=== PATIENT | female | born 1945 | race Hispanic/Latino ===

== ENCOUNTER 2021-12-18 11:47 | Outpatient (CLI) | payer MEDICARE, MEDICAID, SELFPAY ==
[2021-12-18 12:16] LABS: Basophils Percent Auto 0.3 % (0.2-1.2); Eosinophils Percent Auto 0.4 % (0-4.4); Hematocrit 41.1 % (37.0-47.0); Hemoglobin 12.9 g/dL (12.0-15.0); Immature Granulocyte Absolute 0.08 K/mm3 (0.00-0.031); Immature Granulocyte Percent A 0.8 % (0-0.5); Immature Reticulocyte Fraction 13.8 % (3.0-15.9); Lymphocytes Absolute Auto 1.15 K/mm3 (0.9-3.2); Lymphocytes Percent Auto 12.1 % (18.3-44.2); Mean Corpuscular HGB Conc 31.4 g/dl (32-36); Mean Corpuscular Hemoglobin 32.6 pg (26-34); Mean Corpuscular Volume 103.8 fl (80-100); Mean Platelet Volume 9.2 fl (7.4-10.4); Monocytes Absolute Auto 0.7 K/mm3 (0.1-0.6); Neutrophils Absolute Auto 7.6 K/mm3 (1.3-6.7); Neutrophils Percent Auto 79.4 % (45.5-73.1); Platelet Count Result 202 k/mm3 (150-375); Red Blood Count 3.96 M/mm3 (4.2-5.4); Red Cell Distribution Width 13.2 % (11.5-14.5); Reticulocyte Hemoglobin Conten 34.9 pg (28.2-35.7); Reticulocyte Percent 3.14 % (0.7-4.3); Reticulocytes Absolute 0.12 B/L (32.2-175.7); White Blood Count 9.5 K/mm3 (4.5-10.0)
[2021-12-18 15:05] LABS: Iron 62 ug/dL (37-170)
[2021-12-18 15:08] LABS: Alanine Aminotransferase 22 U/L (4-35); Albumin Level 4.3 g/dL (3.5-5.1); Alkaline Phosphatase 54 U/L (38-126); Anion Gap 5 mmol/L (8-16); Aspartate Amino Transferase 23 U/L (14-36); Bilirubin,Total 0.9 mg/dL (0.2-1.3); Blood Urea Nitrogen 17 mg/dL (7-17); Calcium 8.5 mg/dL (8.4-10.2); Carbon Dioxide 31 mmol/L (22-30); Chloride 101 mmol/L (98-107); Estimated Glomerular Filt Rate > 60; Glucose 113 mg/dL (65-110); Potassium 3.9 mmol/L (3.4-5.0); Sodium 137 mmol/L (137-145)
[2021-12-18 15:15] LABS: Percent Iron Saturation 17 % (20-50)
[2021-12-18 15:37] LABS: Thyroid Stimulating Hormone 0.067 uIU/mL (0.465-4.680)
== END 2021-12-18 11:48 | disposition home or self-care (01) ==
LOC: ANHLAB 11:53
PROVIDERS: Visit Provider Internal Medicine Hematology & Oncology
DX: D64.9 Anemia, unspecified (principal)
CPT/HCPCS: 36415; 80053; 82607; 82728; 82746; 83540; 83550; 84443; 85025; 85046

== ENCOUNTER 2022-03-23 10:12 | Outpatient (CLI) | payer MEDICARE, MEDICAID, SELFPAY ==
[2022-03-23 11:10] LABS: Appearance Urine Clear (Clear); Bilirubin Urine Negative (Negative); Color Urine Yellow (Yellow); Glucose Urine UA Negative (Negative); Ketones Urine Negative (Negative); Leukocyte Esterase Ur Trace LEU/UL (NEGATIVE); Nitrate Urine Negative (Negative); Protein Urine 1+ mg/dL (Negative); Specific Grav Ur 1.015 (1.001-1.035)
[2022-03-23 11:11] LABS: Basophils Absolute Auto 0.1 K/mm3 (0.0-0.1); Basophils Percent Auto 0.6 % (0.2-1.2); Eosinophils Percent Auto 0.5 % (0-4.4); Hemoglobin 13.7 g/dL (12.0-15.0); Immature Granulocyte Absolute 0.07 K/mm3 (0.00-0.031); Immature Granulocyte Percent A 0.8 % (0-0.5); Lymphocytes Absolute Auto 2.34 K/mm3 (0.9-3.2); Lymphocytes Percent Auto 27.8 % (18.3-44.2); Mean Corpuscular HGB Conc 34.3 g/dl (32-36); Mean Corpuscular Hemoglobin 30.9 pg (26-34); Mean Corpuscular Volume 90.1 fl (80-100); Mean Platelet Volume 9.2 fl (7.4-10.4); Monocytes Absolute Auto 0.9 K/mm3 (0.1-0.6); Monocytes Percent Auto 10.8 % (2.6-8.5); Neutrophils Percent Auto 59.5 % (45.5-73.1); Platelet Count Result 251 k/mm3 (150-375); Red Blood Count 4.44 M/mm3 (4.2-5.4); White Blood Count 8.4 K/mm3 (4.5-10.0)
[2022-03-23 11:16] LABS: Add Urine Microscopic? YES; Blood Urine Trace-Intact (Negative)
[2022-03-23 11:19] LABS: Creatinine Urine 76.6 mg/dL; Total Protein Urine Random 31 mg/dL
[2022-03-23 11:23] LABS: Anion Gap 10 mmol/L (8-16); Blood Urea Nitrogen 20 mg/dL (7-17); Carbon Dioxide 25 mmol/L (22-30); Chloride 96 mmol/L (98-107); Estimated Glomerular Filt Rate > 60; Glucose 104 mg/dL (65-110); Iron 126 ug/dL (37-170); Mucus Urine Rare /lpf; Phosphorus 4.1 mg/dL (2.5-4.5); Potassium 4.3 mmol/L (3.4-5.0); RBC Urine 0-2 /hpf (0-2); Sodium 131 mmol/L (137-145); Squamous Epithelial Cell Urine Occasional /hpf (Few); WBC Urine 0-3 /hpf (0-3)
[2022-03-23 11:33] LABS: Percent Iron Saturation 41 % (20-50)
[2022-03-23 12:27] LABS: Folic Acid 11.3 ng/mL (2.76->20)
== END 2022-03-23 10:13 | disposition home or self-care (01) ==
PROVIDERS: PCP Internal Medicine; Referring Provider Internal Medicine Nephrology; Visit Provider Internal Medicine Hematology & Oncology
DX: I25.10 Atherosclerotic heart disease of native coronary artery without angina pectoris (principal); I10 Essential (primary) hypertension; E78.5 Hyperlipidemia, unspecified; E87.1 Hypo-osmolality and hyponatremia; E03.9 Hypothyroidism, unspecified; E55.9 Vitamin D deficiency, unspecified; M05.80 Other rheumatoid arthritis with rheumatoid factor of unspecified site; N18.2 Chronic kidney disease, stage 2 (mild); D64.9 Anemia, unspecified
CPT/HCPCS: 36415; 80069; 81001; 82570; 82607; 82728; 82746; 83540; 83550; 84156; 85025

== ENCOUNTER 2022-07-02 10:44 | Emergency (ER) | payer MEDICARE, MEDICAID, SELFPAY ==
[2022-07-02] VITALS (8 sets, daily range): BP systolic 132–174; BP diastolic 66–89; PULSE 69–87; RESP 14–16; TEMP 36.4–37; O2SAT 98–100
--- NOTE | ~2022-07-02 | CT_ITS ---
EXAMINATION: CT brain wo con DATE: 07/02/2022 14:31 INDICATION: Vomiting. TECHNIQUE: Computed tomography (CT) of the head was performed without intravenous contrast. The mA wa s adjusted according to patient size. Iterative reconstruction technique was employed. The dose-lengt h product was 605.33 mGy-cm. COMPARISON: None FINDINGS: There is diffuse brain volume loss. There is no intracranial hemorrhage, acute infarction, or abnormal intracranial mass lesion. The ventricles are normal in size. There are changes of bilater al scleral banding procedures. There are likely changes of ocular lens replacement surgeries. There i s mild mucosal thickening in the paranasal sinuses. There is a small left mastoid effusion. IMPRESSION: 1. Normal aging brain. Reviewed, dictated and finalized at location A. RAM CONTROL ANALYST IMPRESSION: 1. Normal aging brain.
[2022-07-02 12:52] LABS: Basophils Absolute Auto 0.1 K/mm3 (0.0-0.1); Basophils Percent Auto 0.6 % (0.2-1.2); Eosinophils Absolute Auto 0.2 K/mm3 (0-0.3); Eosinophils Percent Auto 2.1 % (0-4.4); Hematocrit 38.5 % (37.0-47.0); Hemoglobin 13.2 g/dL (12.0-15.0); Immature Granulocyte Absolute 0.03 K/mm3 (0.00-0.031); Immature Granulocyte Percent A 0.4 % (0-0.5); Lymphocytes Percent Auto 26.9 % (18.3-44.2); Mean Corpuscular HGB Conc 34.3 g/dl (32-36); Mean Corpuscular Hemoglobin 32.1 pg (26-34); Mean Corpuscular Volume 93.7 fl (80-100); Mean Platelet Volume 9.4 fl (7.4-10.4); Monocytes Percent Auto 11.6 % (2.6-8.5); Neutrophils Absolute Auto 4.8 K/mm3 (1.3-6.7); Neutrophils Percent Auto 58.4 % (45.5-73.1); Platelet Count Result 236 k/mm3 (150-375); Red Blood Count 4.11 M/mm3 (4.2-5.4); White Blood Count 8.2 K/mm3 (4.5-10.0)
[2022-07-02 13:03] LABS: Alanine Aminotransferase 14 U/L (6-35); Albumin Level 4.1 g/dL (3.5-5.1); Alkaline Phosphatase 47 U/L (38-126); Anion Gap 12 mmol/L (8-16); Aspartate Amino Transferase 22 U/L (14-36); Blood Urea Nitrogen 24 mg/dL (7-17); Calcium 7.5 mg/dL (8.4-10.2); Carbon Dioxide 28 mmol/L (22-30); Chloride 88 mmol/L (98-107); Estimated CRCL calculation 37 ml/min; Estimated Glomerular Filt Rate 54; Glucose 96 mg/dL (65-110); Lactic Acid Reflex 0.7 mmol/L (0.7-2.0); Sodium 128 mmol/L (137-145)
[2022-07-02 13:04] LABS: Appearance Urine Clear (Clear); Bilirubin Urine Negative (Negative); Blood Urine Negative (Negative); Color Urine Yellow (Yellow); Glucose Urine UA Negative (Negative); Ketones Urine Negative (Negative); Leukocyte Esterase Ur 1+ LEU/UL (Negative); Nitrate Urine Negative (Negative); Protein Urine Negative (Negative)
[2022-07-02] MEDS: ONDANSETRON INJ 4 MG/2 ML VIAL IV PUSH (13:05)
[2022-07-02] MEDS: SODIUM CHLORIDE 0.9% IV 1,000 ML 150 ML IV CONT (13:05)
[2022-07-02 13:14] LABS: Troponin I < 0.012 ng/mL (0.000-0.034)
[2022-07-02 13:32] LABS: RBC Urine 0-2 /hpf (0-2); Squamous Epithelial Cell Urine Few /hpf (Few)
[2022-07-02 13:39] LABS: Add Urine Microscopic? YES
--- NOTE | 2022-07-02 16:01 | ED.DIZZY ---
HPI - Dizziness General Chief Complaint: Dizziness Stated Complaint: dizziness Time Seen by Provider: 07/02/22 12:15 Source: patient and family Mode of arrival: ambulatory Limitations: no limitations History of Present Illness HPI Narrative: 76-year-old with a history of CAD s/p CABG here with complaints of dizziness which has been ongoing for the last several months. However for the last 4 days she states she has been constantly nauseated and vomited several times. She denies any chest pain, shortness of breath. No history of abdominal pain, blood in the stool or black-colored stool. MD elicited complaint: dizziness Onset (ago): week(s) Timing: gradual onset Severity: moderate Description: sense of movement History of similar symptoms: Yes Exacerbating factors: nothing Relieving factors: nothing Associated symptoms: denies other symptoms Related Data Home Medications Medication Instructions Recorded Confirmed alendronate 70 mg tablet (Fosamax) 70 mg PO WEEKLY 07/02/22 amlodipine 10 mg tablet 10 mg DAILY 07/02/22 apixaban 5 mg tablet (Eliquis) 5 mg BID 07/02/22 atorvastatin 20 mg tablet 20 mg DAILY 07/02/22 carvedilol 6.25 mg tablet 1 mg BID 07/02/22 07/02/22 hydrochlorothiazide 25 mg tablet 25 mg DAILY 07/02/22 levothyroxine 150 mcg tablet 150 mcg DAILY 07/02/22 lisinopril 40 mg tablet 40 mg BID 07/02/22 metoprolol succinate 25 mg 25 mg PO DAILY 07/02/22 tablet,extended release 24 hr prednisone 5 mg tablet 5 - 15 mg PO DAILY PRN Arthritis 07/02/22 tramadol 50 mg tablet 50 mg HS PRN Pain 07/02/22 Allergies Allergy/AdvReac Type Severity Reaction Status Date / Time No Known Allergies Allergy Verified 07/02/22 11:18 Review of Systems Review of Systems: All systems reviewed & are unremarkable except as noted in HPI and below Constitutional: Constitutional: Reports no additional constitutional complaints Eyes: Eyes: Reports no additional eye complaints ENT: Reports system reviewed and no additional complaints, except as documented Cardiovascular: Cardiovascular: Reports no additional cardiovascular complaints Respiratory: Respiratory: Reports no additional respiratory complaints Gastrointestinal: Gastrointestinal: Reports no additional gastrointestinal complaints Musculoskeletal: Musculoskeletal: Reports no additional musculoskeletal complaints Neurologic: Reports system reviewed and no additional complaints, except as documented Exam Narrative: GENERAL: Well-appearing, well-nourished, and in no acute distress. HEAD: Normocephalic, atraumatic. EYES: PERRLA and EOMI. NECK: Supple. CHEST: Clear to auscultation. No respiratory distress. HEART: Regular rate and rhythm. No murmur heard. Normal peripheral pulses. ABDOMEN: Soft, nontender, nondistended, normal active bowel sounds. EXTREMITIES: Normal range of motion. No edema. SKIN: Warm, dry, no rash. NEURO: No focal deficits. Alert and oriented x3. PSYCH: Normal mood and affect. Course Course Emergency Course: Patient was given IV fluids, along with Zofran 4 mg. She is not orthostatic. I have reviewed her lab work and CT findings with the patient. She is feeling slightly better her dizziness has much subsided I recommended her to follow-up with her primary doctor and plug machine operator. Vital Signs Vital signs: Vital Signs Temperature 36.6 C 07/02/22 11:16 Pulse Rate 79 07/02/22 11:16 Respiratory Rate 16 07/02/22 11:16 Blood Pressure 141/73 H 07/02/22 11:16 Pulse Oximetry 100 07/02/22 11:16 Temperature 36.4 C 07/02/22 11:52 Pulse Rate 72 07/02/22 14:49 Respiratory Rate 14 07/02/22 14:49 Blood Pressure 136/69 07/02/22 14:49 Pulse Oximetry 100 07/02/22 14:49 MDM - Dizziness MDM Narrative Medical decision making narrative: 76-year-old with a history of CAD now comes in with dizziness does not appear to be benign positional vertigo we will do cardiac work-up and a CT of the head. Meanwhile start o
--- NOTE | 2022-07-02 16:06 | ECG_ITS ---
Measurements Intervals [place] Rate: 82 P: [place]: 0 QRS: 35 QRSD: 92 T: 226 QT: 372 QTc: 436 Interpretive Statements ATRIAL FIBRILLATION CANNOT RULE OUT SEPTAL INFARCT, AGE INDETERMINATE BORDERLINE ST-T WAVE ABNORMALITY- DIFFUSE LEADS ABNORMAL ECG NO PREVIOUS ECG AVAILABLE FOR COMPARISON Electronically Signed On 07-02-2022 16:14:42 INDUSTRIAL SPECIALIST by Kota Funez D.O.
== END 2022-07-02 17:16 | disposition home or self-care (01) ==
PROVIDERS: Emergency Provider Family Medicine; PCP Internal Medicine
DX: R42 Dizziness and giddiness (principal); I25.10 Atherosclerotic heart disease of native coronary artery without angina pectoris; Z95.1 Presence of aortocoronary bypass graft; Z79.01 Long term (current) use of anticoagulants; I48.91 Unspecified atrial fibrillation; R94.31 Abnormal electrocardiogram [ECG] [EKG]
CPT/HCPCS: 36415; 70450; 80053; 81001; 83605; 84484; 85025; 93005; 96361; 96374; 99284; J2405; J7030

== ENCOUNTER 2022-07-05 13:20 | Observation (INO) | payer MEDICARE, MEDICAID, SELFPAY ==
[2022-07-05] VITALS (17 sets, daily range): BP systolic 132–172; BP diastolic 52–75; PULSE 60–93; RESP 12–24; TEMP 36.4–37.1; O2SAT 98–100; BMI 24.0
--- NOTE | ~2022-07-05 | XR_ITS ---
EXAMINATION: XR chest 1V portable INDICATION: Dizziness and nausea TECHNIQUE: Portable AP chest at 1510 hours COMPARISON: None available FINDINGS: The lungs are free of acute opacities. No pleural effusion or pneumothorax. The cardiomedia stinal silhouette is normal. Median sternotomy wires and mediastinal surgical clips are seen, likely from prior coronary artery bypass grafting. Healed right-sided rib fractures are noted. 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 IMPRESSION: 1. No acute cardiopulmonary abnormality. Reviewed, dictated and finalized at location B. HANDLER
--- NOTE | ~2022-07-05 | CT_ITS ---
EXAMINATION: CTA brain carotid DATE: 07/05/2022 16:30 INDICATION: Dizziness. TECHNIQUE: Computed tomographic angiography (CTA) of the head was performed without and with 100 mL O mnipaque-350 intravenous contrast. CTA of the neck was performed with intravenous contrast. Automated exposure control and iterative reconstruction technique were employed. The dose-length product was 1 613.77 mGy-cm. Maximum intensity projection and volume rendered 3D-reconstructions were created by maddy jose technologist on a separate workstation. COMPARISON: Head CT 07/02/2022 FINDINGS: HEAD CTA: There is diffuse brain volume loss. There is no intracranial hemorrhage, acute infarction, or abnormal intracranial mass lesion. The ventricles are normal in size. There is mild mucosal thicke pelon in the ethmoid sinuses. The mastoid air cells are normal. There are likely changes of ocular mayo s replacement surgeries. There are bilateral scleral banding procedures. The vertebral arteries are c odominant. There is no significant stenosis of basilar artery or the posterior cerebral arteries. Rig ht posterior communicating artery is normal. A left posterior communicating artery is not identified. There is no significant stenosis of the intracranial internal carotid artery. Anterior communicating artery is normal. There is no aneurysm. NECK CTA: There are changes of coronary artery bypass grafting. There are no pathologically enlarged lymph nodes. There is severe stenosis of proximal right vertebral artery. There is plaque in the prox imal internal carotid arteries. There is 44% stenosis of the proximal right internal carotid artery r elative to normal distal artery lumen diameter (NASCET criteria). There is 51% stenosis of the proxim al left internal carotid artery relative to normal distal artery lumen diameter. There is severe cerv ical spondylosis. There is about chronic height loss of multiple thoracic vertebral bodies. IMPRESSION: 1. Normal aging brain. 2. No aneurysm or significant intracranial arterial stenosis. 3. 44% stenosis of the proximal right internal carotid artery relative to normal distal artery lumen diameter (NASCET criteria). 4. 51% stenosis of the proximal left internal carotid artery relative to normal distal artery lumen d iameter. 5. Severe stenosis of proximal right vertebral artery. Reviewed, dictated and finalized at location A. MOBILE MECHANIC IMPRESSION: 1. Normal aging brain. 2. No aneurysm or significant intracranial arterial stenosis. 3. 44% stenosis of the proximal right internal carotid artery relative to eliane l distal artery lumen diameter (NASCET criteria). 4. 51% stenosis of the proximal left internal carotid artery relative to normal distal artery lumen diameter. 5. Severe stenosis of proximal right vertebral artery.
--- NOTE | ~2022-07-05 | MR_ITS ---
EXAMINATION: MR brain/brain stem wo/w con DATE: 07/06/2022 10:05 INDICATION: Dizziness. TECHNIQUE: Magnetic resonance imaging (MRI) of the brain and brainstem was performed without and with 12 mL MultiHance intravenous contrast. COMPARISON: Head CT 07/05/2022 FINDINGS: There are scattered areas of nonspecific increased T2-weighted signal intensity in the cere bral white matter, which is within normal limits for the patient's age. There is no intracranial hemo rrhage, acute infarction, or abnormal intracranial mass lesion. The ventricles are normal in size. Th ere are likely changes of ocular lens replacement surgeries. There are changes of scleral banding pro cedures. The paranasal sinuses are clear. There are trace bilateral mastoid effusions. IMPRESSION: 1. Normal aging brain. Reviewed, dictated and finalized at location A. LE TENDER IMPRESSION: 1. Normal aging brain.
--- NOTE | 2022-07-05 14:59 | ED.DIZZY ---
HPI - Dizziness General Chief Complaint: Dizziness Stated Complaint: dizziness Time Seen by Provider: 07/05/22 14:48 Source: patient Mode of arrival: ambulatory Limitations: no limitations History of Present Illness HPI Narrative: 76 years old white female presents with dizziness for the last 4 to 8 weeks. Was seen in our emergency room 3 days ago with negative work-up. Patient was seen by her family physician numerous of time for the same problem, went to see him today for follow-up and was told to go to the emergency room. She denies any fever, chills, nausea, vomiting, headache, chest pain or shortness of breath. History of hypertension, hypothyroidism, CABG, knee replacement, hip replacement, currently on Eliquis. Patient reports going outdoors a lot, she is active and she cannot sit still. Patient reported that her dizziness is constant 18/03, nothing make it better, nothing make it worse Related Data Home Medications Medication Instructions Recorded Confirmed alendronate 70 mg tablet (Fosamax) 70 mg PO WEEKLY 07/02/22 amlodipine 10 mg tablet 10 mg DAILY 07/02/22 apixaban 5 mg tablet (Eliquis) 5 mg BID 07/02/22 atorvastatin 20 mg tablet 20 mg DAILY 07/02/22 carvedilol 6.25 mg tablet 1 mg BID 07/02/22 07/02/22 hydrochlorothiazide 25 mg tablet 25 mg DAILY 07/02/22 levothyroxine 150 mcg tablet 150 mcg DAILY 07/02/22 lisinopril 40 mg tablet 40 mg BID 07/02/22 metoprolol succinate 25 mg 25 mg PO DAILY 07/02/22 tablet,extended release 24 hr prednisone 5 mg tablet 5 - 15 mg PO DAILY PRN Arthritis 07/02/22 tramadol 50 mg tablet 50 mg HS PRN Pain 07/02/22 Allergies Allergy/AdvReac Type Severity Reaction Status Date / Time No Known Allergies Allergy Verified 07/02/22 11:18 Review of Systems Review of Systems: All systems reviewed & are unremarkable except as noted in HPI and below Exam Narrative: General appearance: Well-developed, well-nourished Skin: Normal color Head: Normocephalic, nontraumatic Eyes: Clear conjunctiva ENT: Oropharynx normal, ears normal, nose normal Neck: Supple, nontender Chest and respiratory: Airway patent, no respiratory distress, no accessory muscle use Heart: Regular rate/rhythm Abdomen: Soft, nontender, no organomegaly, quiet bowel sounds Vascular: Normal peripheral pulses, normal capillary refill. Musculoskeletal: Normal range of motion, nontender back Neurologic: Alert and oriented ?3, YARDAGE CONTROL CLERK is normal as tested, no gross motor deficit Course Consultations Consultation #1: Dr. Ghosh Date: 07/05/22 Time: 18:05 Vital Signs Vital signs: Vital Signs Temperature 37.1 C 07/05/22 13:22 Pulse Rate 93 07/05/22 13:22 Respiratory Rate 16 07/05/22 13:22 Blood Pressure 132/75 07/05/22 13:22 Pulse Oximetry 100 07/05/22 13:22 Oxygen Delivery Room Air 07/05/22 13:22 Temperature 36.7 C 07/05/22 17:01 Pulse Rate 64 07/05/22 17:01 Respiratory Rate 12 07/05/22 17:01 Blood Pressure 134/70 07/05/22 17:01 Pulse Oximetry 98 07/05/22 17:01 Oxygen Delivery Room Air 07/05/22 17:01 MDM - Dizziness Lab Data Result diagrams: 07/05/22 15:37 07/05/22 15:37 Labs: Lab Results 07/05/22 07/05/22 07/05/22 Range/Units 15:37 15:37 15:43 WBC 9.0 (4.5-10.0) K/mm3 RBC 4.17 L (4.2-5.4) M/mm3 Hgb 13.3 (12.0-15.0) g/dL Hct 39.1 (37.0-47.0) % MCV 93.8 (80-100) fl MCH 31.9 (26-34) pg MCHC 34.0 (32-36) g/dl RDW 12.8 (11.5-14.5) % Plt Count 239 (150-375) k/mm3 MPV 9.0 (7.4-10.4) fl Immature Gran % (Auto) 0.4 (0-0.5) % Neut % (Auto) 64.4 (45.5-73.1) % Lymph % (Auto) 23.4 (18.3-44
--- NOTE | 2022-07-05 15:01 | ECG_ITS ---
Measurements Intervals [place] Rate: 92 P: [place]: 0 QRS: 36 QRSD: 92 T: 155 QT: 349 QTc: 432 Interpretive Statements ATRIAL FIBRILLATION NONSPECIFIC ST & T-WAVE ABNORMALITY- DIFFUSE LEADS ABNORMAL ECG COMPARED TO ECG 07/02/2022 16:11:56 NO SIGNIFICANT CHANGES Electronically Signed On 07-05-2022 15:25:46 FIELD ASSOCIATE by Kota Funez D.O.
[2022-07-05 15:49] LABS: Basophils Absolute Auto 0.1 K/mm3 (0.0-0.1); Basophils Percent Auto 0.8 % (0.2-1.2); Eosinophils Absolute Auto 0.2 K/mm3 (0-0.3); Eosinophils Percent Auto 2.3 % (0-4.4); Hematocrit 39.1 % (37.0-47.0); Hemoglobin 13.3 g/dL (12.0-15.0); Immature Granulocyte Absolute 0.04 K/mm3 (0.00-0.031); Immature Granulocyte Percent A 0.4 % (0-0.5); Lymphocytes Percent Auto 23.4 % (18.3-44.2); Mean Corpuscular Hemoglobin 31.9 pg (26-34); Mean Corpuscular Volume 93.8 fl (80-100); Monocytes Absolute Auto 0.8 K/mm3 (0.1-0.6); Monocytes Percent Auto 8.7 % (2.6-8.5); Neutrophils Absolute Auto 5.8 K/mm3 (1.3-6.7); Neutrophils Percent Auto 64.4 % (45.5-73.1); Platelet Count Result 239 k/mm3 (150-375); Red Blood Count 4.17 M/mm3 (4.2-5.4); Red Cell Distribution Width 12.8 % (11.5-14.5)
[2022-07-05 15:50] LABS: Appearance Urine Clear (Clear); Bilirubin Urine 3+ (Negative); Blood Urine Negative (Negative); Color Urine Yellow (Yellow); Glucose Urine UA Negative (Negative); Ketones Urine 1+ mg/dL (Negative); Leukocyte Esterase Ur Trace LEU/UL (Negative); Nitrate Urine Negative (Negative); Protein Urine 2+ mg/dL (Negative); Specific Grav Ur 1.025 (1.001-1.035)
[2022-07-05 15:55] LABS: Bacteria Urine Trace /hpf; Mucus Urine Rare /lpf; Squamous Epithelial Cell Urine Many /hpf (Few)
[2022-07-05 16:00] LABS: Alanine Aminotransferase 13 U/L (6-35); Albumin Level 4.2 g/dL (3.5-5.1); Alkaline Phosphatase 48 U/L (38-126); Anion Gap 11 mmol/L (8-16); Aspartate Amino Transferase 23 U/L (14-36); Bilirubin,Total 1.1 mg/dL (0.2-1.3); Blood Urea Nitrogen 18 mg/dL (7-17); Calcium 8.3 mg/dL (8.4-10.2); Carbon Dioxide 26 mmol/L (22-30); Chloride 92 mmol/L (98-107); Estimated CRCL calculation 30 ml/min; Estimated Glomerular Filt Rate 43; Glucose 108 mg/dL (65-110); Potassium 4.5 mmol/L (3.4-5.0); Sodium 129 mmol/L (137-145)
[2022-07-05 16:14] LABS: Troponin I 0.045 ng/mL (0.000-0.034)
[2022-07-05 16:27] LABS: Add Urine Microscopic? YES
[2022-07-05 17:52] LABS: Influenza A QL RT-PCR Negative (Negative); Influenza B QL RT-PCR Negative (Negative); SARS-CoV-2 RNA PCR Negative
--- NOTE | 2022-07-05 18:41 | PM.IMHP ---
H&P: HPI History of Present Illness Date/Time: 07/05/22 18:41 Chief Complaint: Dizziness Narrative: This is a 76-year-old female patient who has been dealing with dizziness for at least 4-8 weeks. The patient was seen in the emergency room 3 days ago with a negative workup. The patient stated that she has been to her primary care doctor several times. She went to see him today and he told her to follow-up with the emergency room. She denied any fever chills no nausea vomiting or diarrhea. She does have a history of having coronary artery disease with a CABG, hypertension, hypothyroidism. The patient has a history of AFib and is on Eliquis. The patient stated that her dizziness is 247. Nothing makes it better or worse. Her sodium is 129 which was 128 on the and 131 on 03/23/2022. Her creatinine is 1.2 today which is typically normal. The patient stated that she has stopped taking her medication because she thinks that it may be causing her dizziness. Her troponin is 0.045 and 0.054. She denies any chest pain at this time. She is negative for influenza A/B and COVID. She was given an aspirin and IV fluids in the emergency room. Her EKG shows atrial fibrillation with heart rate in the 90s. Her head and neck CTA was read as 1. Normal aging brain. 2. No aneurysm or significant intracranial arterial stenosis. 3. 44% stenosis of the proximal right internal carotid artery relative to normal distal artery lumen diameter (NASCET criteria). 4. 51% stenosis of the proximal left internal carotid artery relative to normal distal artery lumen diameter. 5. Severe stenosis of proximal right vertebral artery. Neurology had been consulted per the ED physician Chest x-ray shows no acute cardiopulmonary abnormality. The patient is being admitted to observation status on the date of service of 07/05/2022. Review of Systems Review of Systems: See HPI All systems reviewed & are unremarkable except as noted in HPI and below Constitutional: Constitutional: Reports as per HPI and Reports no additional constitutional complaints Eyes: Eyes: Reports as per HPI and Reports no additional eye complaints ENT: Reports system reviewed and no additional complaints, except as documented and Reports Normal hearing present Cardiovascular: Cardiovascular: Reports no additional cardiovascular complaints Respiratory: Respiratory: Reports no additional respiratory complaints and Reports no additional respiratory complaints Gastrointestinal: Gastrointestinal: Reports as per HPI and Reports no additional gastrointestinal complaints Musculoskeletal: Musculoskeletal: Reports no additional musculoskeletal complaints Integumentary/Breasts: Skin/Breast: Reports system reviewed and no additional complaints, except as docu and Reports as per HPI Neurologic: Reports system reviewed and no additional complaints, except as documented, Reports as per HPI and Reports Normal hearing present Psychiatric: Psychiatric: Reports no additional psychiatric complaints and Reports as per HPI Endocrine: Endocrine: Reports no additional endocrine complaints Hematologic/Lymphatic: Hematologic/Lymphatic: Reports no additional hematologic/lymphatic complaints Allergic/Immunologic: Allergic/Immunologic: Reports no additional allergic/immunologic complaints [facility] Past Medical History Medical History (Updated 07/05/22 @ 22:16 by Heather Cain NP) Atrial fibrillation CAD (coronary artery disease) Hyperlipidemia Hypertension Hypothyroidism Osteoporosis Surgical History Surgical History H/O cataract extraction H/O knee surgery History of hip surgery S/P CABG x 4 Family History Family History Father Cancer Mother Dementia Sibling MVA (motor vehicle accident) Social History Social History (Updated 07/05/22 @ 22:08 by Heather Cain NP) Social History: S
[2022-07-05] MEDS: SODIUM CHLORIDE 0.9% IV 1,000 ML 999 ML IV CONT (19:00)
[2022-07-05] MEDS: ASPIRIN 81 MG CHEWABLE TABLET 324 MG PO (19:01)
--- NOTE | 2022-07-05 20:44 | ADMGEN ---
This patient, Karla Dumont, was admitted to IMU Room 207-01. Patient/family oriented to hospital policies and general routines including ID bracelet, bed and alarms, visiting hours, pain management, procedures, bathroom and other care routines, personal items, smoking policy, room service/diet, and visiting hours. Information on how to activate the Rapid Response Team has been discussed. Patient/Family are encouraged to report perceived risks to care and to ask questions if they do not understand what they are told or what they should do.
[2022-07-05 21:52] LABS: Troponin I 0.054 ng/mL (0.000-0.034)
[2022-07-06] VITALS (17 sets, daily range): BP systolic 128–185; BP diastolic 45–75; PULSE 49–84; RESP 16–20; TEMP 36.3–36.6; O2SAT 98–100
[2022-07-06] MEDS: carvediloL 6.25 MG TABLET BY MOUTH ×3 (00:18→21:00)
[2022-07-06] MEDS: APIXABAN 5 MG TABLET BY MOUTH ×3 (00:18→16:45)
[2022-07-06 01:34] LABS: Troponin I 0.049 ng/mL (0.000-0.034)
[2022-07-06 04:10] LABS: Sodium Urine Random 36 meq/L
[2022-07-06 04:56] LABS: Basophils Absolute Auto 0.1 K/mm3 (0.0-0.1); Basophils Percent Auto 0.8 % (0.2-1.2); Eosinophils Absolute Auto 0.2 K/mm3 (0-0.3); Eosinophils Percent Auto 3.6 % (0-4.4); Hematocrit 34.3 % (37.0-47.0); Hemoglobin 11.8 g/dL (12.0-15.0); Immature Granulocyte Absolute 0.02 K/mm3 (0.00-0.031); Immature Granulocyte Percent A 0.3 % (0-0.5); Lymphocytes Absolute Auto 2.35 K/mm3 (0.9-3.2); Lymphocytes Percent Auto 38.1 % (18.3-44.2); Mean Corpuscular HGB Conc 34.4 g/dl (32-36); Mean Corpuscular Hemoglobin 32.1 pg (26-34); Mean Corpuscular Volume 93.2 fl (80-100); Mean Platelet Volume 9.3 fl (7.4-10.4); Monocytes Absolute Auto 0.7 K/mm3 (0.1-0.6); Monocytes Percent Auto 10.6 % (2.6-8.5); Neutrophils Absolute Auto 2.9 K/mm3 (1.3-6.7); Neutrophils Percent Auto 46.6 % (45.5-73.1); Platelet Count Result 209 k/mm3 (150-375); Red Blood Count 3.68 M/mm3 (4.2-5.4); Red Cell Distribution Width 12.9 % (11.5-14.5); White Blood Count 6.2 K/mm3 (4.5-10.0)
[2022-07-06 05:09] LABS: Anion Gap 9 mmol/L (8-16); Blood Urea Nitrogen 16 mg/dL (7-17); Calcium 7.9 mg/dL (8.4-10.2); Carbon Dioxide 23 mmol/L (22-30); Chloride 96 mmol/L (98-107); Estimated CRCL calculation 41 ml/min; Estimated Glomerular Filt Rate > 60; Glucose 101 mg/dL (65-110); Magnesium 1.7 mg/dL (1.6-2.3); Potassium 4.2 mmol/L (3.4-5.0); Sodium 128 mmol/L (137-145)
[2022-07-06 05:50] LABS: Thyroid Stimulating Hormone Reflex 0.276 uIU/mL (0.465-4.68)
[2022-07-06] MEDS: LEVOTHYROXINE SODIUM 150 MCG TABLET BY MOUTH (06:31)
[2022-07-06] MEDS: amLODIPine BESYLATE 5 MG TABLET 10 MG BY MOUTH (08:02)
[2022-07-06] MEDS: ATORVASTATIN 20 MG TABLET BY MOUTH (08:02)
[2022-07-06] MEDS: ASPIRIN 81 MG CHEWABLE TABLET PO (08:04)
[2022-07-06 08:50] LABS: Total Triiodothyronine (T3) 0.84 NG/ML (0.97-1.69)
--- NOTE | 2022-07-06 09:10 | PM.IMPN ---
Progress Note: A&P Assessment and Plan (1) Dizziness: Code(s): R42 - Dizziness and giddiness Status: Acute Assessment and Plan: Discussed with patient that her dizziness could be result of stenosis in the vertebral artery, AFib, possible NSTEMI, her sodium levels, or dehydration. Plan to investigate the possible differential diagnoses. And answered all of patient's questions to the best of my ability. CTA head/neck revealed severe stenosis of proximal right vertebral artery. Neurology consulted. MRI brain and brainstem revealed normal aging brain. Chest x-ray revealed no acute cardiopulmonary process Elevated troponin at 0.045, 0.054, 0.049. Cardiology consulted. EKG revealed A-Fib, nonspecific ST and T-wave abnormalities. This did not reveal any significant changes from previous EKG done on 07/02/2022. Patient has history of chronic AFib. 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 (3) Hyponatremia: Code(s): E87.1 - Hypo-osmolality and hyponatremia Status: Acute Assessment and Plan: -morning sodium was 128 -continue to hold hydrochlorothiazide. -urine sodium and osmolarity ordered -fractional excretion of sodium will be calculated upon urine sodium results -cortisol level will be ordered for morning labs (4) Elevated troponin: Code(s): R77.8 - Other specified abnormalities of plasma proteins Status: Acute Assessment and Plan: -Cardiology does not recommend ischemia workup since ischemic heart disease and their opinion is unrelated to chief complaint. Speech Communication Professor would like to follow up with patient on and outpatient basis. (5) Atrial fibrillation: Code(s): I48.91 - Unspecified atrial fibrillation Status: Chronic Assessment and Plan: -continue with Coreg -continue with Eliquis. (6) CAD (coronary artery disease): Code(s): I25.10 - Atherosclerotic heart disease of ruby coronary artery without angina pectoris Status: Chronic Assessment and Plan: -the patient has a history of CABG -continue with atorvastatin -continue with Coreg (7) Hyperlipidemia: Code(s): E78.5 - Hyperlipidemia, unspecified Status: Chronic Assessment and Plan: -Due to severe stenosis and right vertebral artery patient prescribed Crestor 20 mg. -Are atorvastatin 20 was discontinued (8) Hypertension: Code(s): I10 - Essential (primary) hypertension Status: Chronic Assessment and Plan: -hold lisinopril -hold metoprolol due to bradycardia when given last night -continue with carvedilol -continue with amlodipine -Plan to continue monitoring blood pressure and heart rate (9) Hypothyroidism: Code(s): E03.9 - Hypothyroidism, unspecified Status: Chronic Assessment and Plan: -continue with levothyroxine -TSH 0.276, T4 2.1, T3 0.84 Time Spent With Patient Time with patient: Greater than 35 minutes Subjective Date/time seen: 07/06/22 09:10 Interval history: Patient resting comfortably in bed and in good spirits. Review of Systems Review of Systems: 76-year-old female coronary artery disease, hyperlipidemia, hypertension, and hypothyroid. Patient presented to the ER yesterday with complaints of dizziness that has been going on for 4-6 weeks. Today patient states that dizziness has improved but is still present. Patient describes the dizziness as a feeling lightheaded and that she could lose her balance at any time. She does not describe the dizziness as the room spinning nor seeing doubles. Patient states that she does have falls every once in a while her most recent fall being a couple months ago, patient believes she has lost consciousness in the past, and patient feels as if her
--- NOTE | 2022-07-06 09:17 | WPDNEURCNPN ---
Assessment and Plan Assessment and plan (1) Dizziness: Code(s): R42 - Dizziness and giddiness Status: Acute (2) Atrial fibrillation: Code(s): I48.91 - Unspecified atrial fibrillation Status: Chronic Plan Ms. Dumont is a 76 year old female with a history of atrial fibrillation presenting for several month history of dizziness. Found to have R vertebral artery stenosis, which may be the etiology of her symptoms. No other focal symptoms to suggest stroke, but still a possibility. She reports compliance with her Eliquis. - MRI brain w/o contrast pending - Check HgbA1c and lipid panel - Continue Eliquis 5mg BID - Will need evaluation by neurointerventionist for severe vertebral artery stenosis -- recommend discussing case with [facility] or [facility]. I suspect she will probably need angiogram for further evaluation. Consult date: 07/06/22 Time Seen: 09:17 Reason for consult: Dizziness HPI: Karla Dumont is a 76 year old female with a history of atrial fibrillation, HTN, CAD s/p CABG presenting for evaluation of dizziness. Patient has been having constant dizziness for the past 2 months. The dizziness is typically intermittent throughout the day, but some day it is constant. Patient was seen at [place] ED on 07/02 for same complaints, had a CT head which was negative. She was discharged with recommendations to follow up with her PCP. She presented again on 07/05 for the dizziness. EKG showed atrial fibrillation. She does take Eliquis 5mg BID and atorvastatin 20mg daily. CT head was negative, but CA showed 44% stenosis of proximal R ICA, 51% stenosis of proximal L ICA, and severe stenosis of proximal R vertebral artery. She was given aspirin in the ED and admitted for further evaluation. BP has been mostly in 140s-160s systolic. HR has been as low as the 50s. She was evaluated by Cardiology for possible cardiogenic causes of her symptoms. Patient reports that she is having episodes of lightheadedness rather than room spinning type sensation. She has had several episodes described as her losing consciousness while sitting down, without any significant preceding symptoms. She has had a couple of fainting episodes in the past two months. She denies any double vision, dysphagia, dysarthria, hoarseness, focal numbness/weakness. Review of Systems Constitutional: Constitutional: Reports no additional constitutional complaints Eyes: Eyes: Reports blurry vision Comments: unfocused vision ENT: Reports Normal hearing present and Denies dysphagia Cardiovascular: Cardiovascular: Reports lightheadedness Respiratory: Respiratory: Reports no additional respiratory complaints Gastrointestinal: Gastrointestinal: Reports constipation Genitourinary: Genitourinary: Reports no additional female genitourinary complaints Musculoskeletal: Musculoskeletal: Reports arthralgias Integumentary/Breasts: Skin/Breast: Reports system reviewed and no additional complaints, except as docu Neurologic: Reports as per HPI Psychiatric: Psychiatric: Reports no additional psychiatric complaints PMFSH Past Medical History Medical History Atrial fibrillation CAD (coronary artery disease) Hyperlipidemia Hypertension Hypothyroidism Osteoporosis Surgical History Surgical History H/O cataract extraction H/O knee surgery History of hip surgery S/P CABG x 4 Family History Family History Father Cancer Mother Dementia Sibling MVA (motor vehicle accident) Social History Social History Social History: She is and lives with daughter and son in law. She is retired Ret from [employer] . She is a former smoker . She has 5 children. She occasionally has an alcoholic drink. Her daughter is the durable power attorney law clerk for [employer]
--- NOTE | 2022-07-06 11:15 | PM.CNCAR ---
Assessment and Plan Assessment and plan (1) Atrial fibrillation: Code(s): I48.91 - Unspecified atrial fibrillation Status: Acute (2) Elevated troponin: Code(s): R77.8 - Other specified abnormalities of plasma proteins Status: Acute Plan this is a 76-year-old woman who has developed symptoms of dizziness that have been going on for several weeks. I do not have any reason to think this is a cardiac issue. Her cardiac rhythm is chronic atrial fibrillation rate is well controlled she is not hypotensive or orthostatic. The principal reason for consulting me to see her today was for troponin level which was sampled for unclear reasons. The levels are flat just barely out of normal range and she is not having any ischemic symptomatology. I would not at this point recommend initiating an ischemia workup since her ischemic heart disease in my opinion is unrelated to her chief complaint. Her cardiac follow-up will be of course with her established oxyhydrogen welder. I do not plan on continuing to see her while she is here at [place] unless her condition changes Zeeshan Colindres MD [facility] History of Present Illness History of Present Illness Consult date/time: 07/06/22 11:15 Reason For Visit: dizziness elevated troponin,rt vertebral stenosis Narrative: This is a 76-year-old woman I am seeing at the request of the hospitalist because of elevated troponin levels. She is unknown to me prior to this consultation this morning and has a history of coronary artery disease as well as chronic atrial fibrillation. She has a oxyhydrogen welder elsewhere that manages her case. She is not reporting any symptoms that appear to be related to her car cardiovascular disease. She apparently has been experiencing dizziness consistently for about 3 or 4 weeks. She describes dizziness that seems to come and go in waves it is sometimes related to activity or body position but not all the time sometimes is associated with some nausea. She was seen in this hospital's emergency room a number of days ago had a negative evaluation and was allowed to be discharged. Apparently yesterday her primary care physician saw her who has an office in the [place] area. He advised them to come to the emergency room and be admitted for this. For some reason rather than admitting her is that locale they drove appeared came back to this hospital for admission. None of her physicians work at [facility]. She does not describe any cardiovascular complaints such as chest pain shortness of breath palpitations orthopnea PND or edema. She is currently not experiencing any dyspnea. Her ECG shows atrial fibrillation with controlled ventricular response and nonspecific IVCD and some nonspecific ST segment changes. There are no changes of acute ischemia or injury. For reasons that are not clear to me she had 3 troponin levels done that are just out of normal range but are flat at 0.05. These findings have prompted consultation for me to see her today. She says that she has a history of coronary artery disease that was identified she thinks back around 2003 or 2004. She was referred by her oxyhydrogen welder to Cardiothoracic surgery at [place] for surgical revascularization. She has had no significant cardiac problems since her operation that she can recall. She believes at the same time as when she was found to have atrial fibrillation and [place] managed with rate control and anticoagulation. She takes a low dose of metoprolol at takes apixaban for anticoagulation. Her medical regimen is somewhat unusual in my opinion the at also includes a low dose of carvedilol. According to the chart she is not hypotensive bradycardic or orthostatic. Review of Systems Constitutional: Constitutional: Reports no additional constitutional complaints Eyes: Eyes: Reports no additional eye complaints ENT: Reports system reviewed and no additional complaints, except as documented Cardiovasc
[2022-07-06 12:45] LABS: Sodium Urine Random 57 meq/L
--- NOTE | 2022-07-06 12:48 | PCPTNOTE ---
Attempted PT evaluation, per RN, pt is Bradycardic and requested therapy return at a later. Pt also has bed rest orders in at this time. Will follow.
[2022-07-06 12:49] LABS: Cholesterol 101 mg/dL (0-200); HDL Direct 28 mg/dL; Triglycerides 149 mg/dL (<150)
[2022-07-06 12:59] LABS: LDL Cholesterol Direct 48 mg/dL
[2022-07-06 13:23] LABS: Hemoglobin A1C 5.8 % (<5.7)
[2022-07-06] MEDS: ONDANSETRON INJ 4 MG/2 ML VIAL IV PUSH (21:00)
[2022-07-06] MEDS: SIMETHICONE 80 MG TAB.CHEW PO (23:58)
[2022-07-07] VITALS (9 sets, daily range): BP systolic 119–156; BP diastolic 38–64; PULSE 52–86; RESP 14–18; TEMP 36.2–37.2; O2SAT 96–100
[2022-07-07 05:28] LABS: Hematocrit 34.2 % (37.0-47.0); Hemoglobin 11.9 g/dL (12.0-15.0); Mean Corpuscular HGB Conc 34.8 g/dl (32-36); Mean Corpuscular Hemoglobin 32.2 pg (26-34); Mean Corpuscular Volume 92.7 fl (80-100); Mean Platelet Volume 8.9 fl (7.4-10.4); Platelet Count Result 201 k/mm3 (150-375); Red Blood Count 3.69 M/mm3 (4.2-5.4); Red Cell Distribution Width 12.7 % (11.5-14.5); White Blood Count 7.6 K/mm3 (4.5-10.0)
[2022-07-07 05:38] LABS: Alanine Aminotransferase 12 U/L (6-35); Albumin Level 3.5 g/dL (3.5-5.1); Alkaline Phosphatase 40 U/L (38-126); Anion Gap 10 mmol/L (8-16); Aspartate Amino Transferase 24 U/L (14-36); Bilirubin,Total 0.9 mg/dL (0.2-1.3); Blood Urea Nitrogen 14 mg/dL (7-17); Calcium 7.9 mg/dL (8.4-10.2); Carbon Dioxide 24 mmol/L (22-30); Chloride 93 mmol/L (98-107); Estimated CRCL calculation 45 ml/min; Estimated Glomerular Filt Rate > 60; Glucose 91 mg/dL (65-110); Magnesium 1.4 mg/dL (1.6-2.3); Potassium 4.1 mmol/L (3.4-5.0); Sodium 127 mmol/L (137-145)
[2022-07-07 06:17] LABS: Cortisol Baseline 6.98 ug/dL
[2022-07-07] MEDS: LEVOTHYROXINE SODIUM 150 MCG TABLET BY MOUTH (06:31)
[2022-07-07] MEDS: ACETAMINOPHEN 325 MG TABLET 650 MG PO (06:36)
[2022-07-07] MEDS: MAGNESIUM SULF 2 GM/WATER 50ML 2 GM/50 ML BAG IVPB (09:08)
[2022-07-07] MEDS: ASPIRIN 81 MG CHEWABLE TABLET PO (09:10)
[2022-07-07] MEDS: amLODIPine BESYLATE 5 MG TABLET 10 MG BY MOUTH (09:11)
[2022-07-07] MEDS: APIXABAN 5 MG TABLET BY MOUTH (09:12)
[2022-07-07] MEDS: carvediloL 6.25 MG TABLET BY MOUTH (09:13)
[2022-07-07] MEDS: ROSUVASTATIN 10 MG TABLET 20 MG PO (09:14)
--- NOTE | 2022-07-07 10:02 | PM.DS ---
DS: Admitting Diagnosis Discharge Date 07/07/2022 Admitting Diagnosis Dizziness, elevated troponin, stenosis of right vertebral artery, dehydration, hyponatremia DS: Discharge Diagnosis Discharge Diagnosis (1) Dizziness: Code(s): R42 - Dizziness and giddiness Status: Acute (2) Stenosis of vertebral artery without cerebral infarction: Code(s): I65.09 - Occlusion and stenosis of unspecified vertebral artery Status: Acute (3) Hyponatremia: Code(s): E87.1 - Hypo-osmolality and hyponatremia Status: Acute (4) Elevated troponin: Code(s): R77.8 - Other specified abnormalities of plasma proteins Status: Acute (5) Atrial fibrillation: Code(s): I48.91 - Unspecified atrial fibrillation Status: Chronic (6) CAD (coronary artery disease): Code(s): I25.10 - Atherosclerotic heart disease of [place] coronary artery without angina pectoris Status: Chronic (7) Hyperlipidemia: Code(s): E78.5 - Hyperlipidemia, unspecified Status: Chronic (8) Hypertension: Code(s): I10 - Essential (primary) hypertension Status: Chronic (9) Hypothyroidism: Code(s): E03.9 - Hypothyroidism, unspecified Status: Chronic DS: Summary Hospital Course Reason for hospitalization: Dizziness, elevated troponin, stenosis of right vertebral artery, dehydration, hyponatremia Hospital Course: 76-year-old woman with a history of hypothyroidism, atrial fibrillation, hypertension, CABG, coronary artery disease, and hyperlipidemia presents to the ER with complaints of dizziness for several weeks. Patient described ?dizziness? as feeling lightheaded and faint. She denied the feelings the room spinning and having double vision. Patient stated that at times she thinks that she has lost consciousness while sitting. Patient's daughter is worried about polypharmacy. Patient had elevated troponin in the ER and CT of the head and neck revealed severe stenosis of the right vertebral artery. Patient also had hyponatremia, with a sodium of 129. Cardiology was consulted due to elevated troponin. Cardiology did not think the elevated troponin was related to the dizziness and did not find it necessary to further evaluate the patient for ischemia. Neurology was consulted for this severe right vertebral artery stenosis. Neurology ordered MRI without contrast. I discontinued patient's Lipitor 20 mg and added Crestor 20 mg due to this severity of the stenosis in patient's brain. MRI of the head and brain stem showed normal aging brain. Neurology plans to follow-up as outpatient. Patient's hydrochlorothiazide was held due to low sodium. Patient's home medication included both metoprolol succinate and carvedilol. Metoprolol was discontinued. Discussed with patient that due to low sodium, dehydration, hydrochlorothiazide and being on 2 beta-blockers could be the source of her lightheadedness. Patient's FENa was 0.5% and has been put on a fluid restriction of 1200. Patient has voiced feeling improved since arriving to the ER. Plan to discontinue metoprolol succinate and hydrochlorothiazide on discharge and having patient follow up with Neurology. Patient interested in establishing with new block cleaner so referral to Cardiology was made. Patient voiced her understanding. I answered all questions that the patient and her daughter had to the best of my ability. Status at Discharge Functional status at discharge: independent ambulation Overall status at discharge: patient is progressing back to baseline Time Spent with Patient Time attestation: Total time spent providing and/or coordinating discharge services: Time spent: Greater than 30 minutes Exam Narrative: HENMT: moist mucous membranes EYES: EOM intact b/l NECK: no lymphadenopathy RESPIRATORY: clear to auscultation CARDIO: Irregular rate and rhythm GI: soft, nontender, bowel sounds present SKIN: no rashes EXTREMITIES: no alina
[2022-07-07 12:27] LABS: Anion Gap 12 mmol/L (8-16); Blood Urea Nitrogen 13 mg/dL (7-17); Calcium 8.4 mg/dL (8.4-10.2); Carbon Dioxide 27 mmol/L (22-30); Chloride 88 mmol/L (98-107); Estimated CRCL calculation 57 ml/min; Estimated Glomerular Filt Rate > 60; Glucose 120 mg/dL (65-110); Potassium 4.4 mmol/L (3.4-5.0); Sodium 127 mmol/L (137-145)
[2022-07-09 15:56] LABS: Osmolality, Urine 485 mOsm/kg (50-1200)
== END 2022-07-07 16:22 | disposition home or self-care (01) ==
LOC: ANHED 18:07 → ANHIMU 20:23
PROVIDERS: Internal Medicine Critical Care Medicine; Nurse Practitioner; Student in an Organized Health Care Education/Training Program; Admitting Provider Internal Medicine; Emergency Provider Emergency Medicine; PCP Internal Medicine; Visit Provider Internal Medicine
DX: I65.01 Occlusion and stenosis of right vertebral artery (principal); I48.91 Unspecified atrial fibrillation; R42 Dizziness and giddiness; I25.10 Atherosclerotic heart disease of native coronary artery without angina pectoris; E78.5 Hyperlipidemia, unspecified; I10 Essential (primary) hypertension; R77.8 Other specified abnormalities of plasma proteins; E87.1 Hypo-osmolality and hyponatremia; E03.9 Hypothyroidism, unspecified; E86.0 Dehydration; M81.0 Age-related osteoporosis without current pathological fracture; Z95.1 Presence of aortocoronary bypass graft; R94.31 Abnormal electrocardiogram [ECG] [EKG]; F10.90 Alcohol use, unspecified, uncomplicated; Z20.822 Contact with and (suspected) exposure to COVID-19; Z87.891 Personal history of nicotine dependence; Z79.01 Long term (current) use of anticoagulants; Z79.52 Long term (current) use of systemic steroids; Z79.891 Long term (current) use of opiate analgesic; Z79.899 Other long term (current) drug therapy
CPT/HCPCS: 36415; 70496; 70498; 70553; 71045; 80048; 80053; 80061; 81001; 82533; 83036; 83735; 83935; 84300; 84439; 84443; 84480; 84484; 85025; 85027; 87502; 93005; 96360; 96361; 96365; 96375; 97161; 99285; A9270; A9577; G0378; J2405; J3475; J7030; Q9967; U0003; U0005

== ENCOUNTER 2023-04-02 10:00 | Outpatient (CLI) | payer MEDICARE, MEDICAID, SELFPAY ==
--- NOTE | ~2023-04-02 | CT_ITS ---
EXAMINATION: CTA brain carotid DATE: 04/02/2023 11:23 INDICATION: Occlusion and stenosis of right vertebral artery. TECHNIQUE: Computed tomographic angiography (CTA) of the head was performed with 100 mL Omnipaque-350 intravenous contrast. CTA of the neck was performed with intravenous contrast. Automated exposure co ntrol and iterative reconstruction technique were employed. The dose-length product was 1105.76 mGy-c m. Maximum intensity projection and volume rendered 3D-reconstructions were created by the [employer] st on a separate workstation. COMPARISON: CTA 07/05/2022 FINDINGS: HEAD CTA: There is no intracranial hemorrhage, acute infarction, or abnormal intracranial mass lesion . The ventricles are normal in size. There are changes of bilateral scleral banding procedures. There are likely changes of ocular lens replacement surgeries. The paranasal sinuses are clear. There is a left mastoid effusion. The vertebral arteries are codominant. There is no significant stenosis of ba silar artery or the posterior cerebral arteries. There is no significant stenosis of intracranial int ernal carotid arteries or anterior or middle cerebral arteries. Right posterior communicating artery is normal. A left posterior communicating artery is not identified. Anterior communicating artery is normal. There is no aneurysm. NECK CTA: The lungs demonstrate mild atelectasis. There are no pathologically enlarged lymph nodes. T here is moderate stenosis of proximal right vertebral artery. There is plaque in the proximal interna l carotid arteries. There is 49% stenosis of the proximal right internal carotid artery relative to n ormal distal artery lumen diameter (NASCET criteria). There is 15% stenosis of the proximal left inte rnal carotid artery relative to normal distal artery lumen diameter. There is severe cervical spondyl osis. There is mild chronic height loss of multiple thoracic vertebral bodies. IMPRESSION: 1. Normal brain parenchyma. 2. 49% stenosis of the proximal right internal carotid artery relative to normal distal artery lumen diameter (NASCET criteria). 3. 15% stenosis of the proximal left internal carotid artery relative to normal distal artery lumen d iameter. 4. Moderate stenosis of proximal right vertebral artery. Reviewed, dictated and finalized at location A. IMPRESSION: 1. Normal brain parenchyma. 2. 49% stenosis of the proximal right internal carotid artery relative to eliane l distal artery lumen diameter (NASCET criteria). 3. 15% stenosis of the proximal left internal carotid artery relative to normal distal artery lumen diameter. 4. Moderate stenosis of proximal right vertebral artery.
--- NOTE | ~2023-04-02 | US_ITS ---
Limited Abdominal Sonogram: Real-time sonographic imaging of the right upper quadrant was performed. Clinical History: Right upper quadrant pain Findings: The liver appears normal with no evidence of mass lesion or bile duct dilatation. Main por ann-marie vein demonstrates normal direction of flow. Gallbladder is poorly seen. There is apparent wall ec ho shadow complex, suggestive a gallbladder filled with stones. The common bile duct measures 12 mm. The visualized pancreas, aorta, and IVC are unremarkable. Impression: Probable gallbladder filled with stones, with apparent wall echo shadow complex present. Dilated common bile duct. Consider MRCP for further evaluation as indicated. Reviewed, dictated and finalized at location . Impression: Probable gallbladder filled with stones, with apparent wall echo shadow complex present. Dilated common bile duct. Consider MRCP for further evaluation as indicated.
[2023-04-02 11:14] LABS: Estimated Glomerular Filt Rate > 60
== END 2023-04-02 10:01 | disposition home or self-care (01) ==
PROVIDERS: PCP Family Medicine; Visit Provider Nurse Practitioner Family
DX: I65.01 Occlusion and stenosis of right vertebral artery (principal); I65.23 Occlusion and stenosis of bilateral carotid arteries; R10.11 Right upper quadrant pain; R17 Unspecified jaundice; Q44.5 Other congenital malformations of bile ducts
CPT/HCPCS: 70496; 70498; 76705; Q9967

== ENCOUNTER 2023-07-31 09:15 | Outpatient (RCR) | payer MEDICARE, MEDICAID, SELFPAY ==
--- NOTE | 2023-06-03 09:47 | OPREHPOC ---
Outpatient Therapy Plan of Care This is a Multidisciplinary Plan of Care that may contain components documented by all disciplines (PT, OT, and ST.) PT Problem 1 PT Problem #1 Knowledge Deficit PT Goal 1 Goal 1* indep with HEP PT Problem 2 PT Problem #2 Pain PT Goal 1 Goal 1* pt report pain at worst of 8/10 in neck 2* Dizziness Handicap Index self assessment score of 30/100 PT Problem 3 PT Problem #3 Impaired Flexibility PT Goal 1 Goal increase cervical active ROM, with decreased spasms over neck, causing vestibular s/s: 1* rotation R 50' 2* rotation L 40' 3* side bend R 20' 4* side bend L 20' PT Problem 4 PT Problem #4 Impaired Functional Mobil PT Goal 1 Goal improve vestibular s/s to improve mobility: pt report NO dizziness with : 1* supine to sit 2* sit to stand 3* walking 20' with moving head to R/L 2x 4* reading and doing her puzzles 5* further testing of vestibular system as indicated with progression of treatment
--- NOTE | 2023-06-03 09:47 | PTOPEVAL1 ---
Assessment and note entered by Nikole Muse, PT Evaluation Information Assessment Status Evaluation Diagnosis vestibular rehab/dizziness Onset few years ago Subjective Information symptoms: dizzy all the time, does not change; cannot do anything to change it; problems with reading--cannot read letters and lose her place-- need to have big letters; head feels funny--not hurt but uncomfortable; supposed to have MRI; no change with rolling in bed; have not had therapy for dizziness in the past; have not had any imaging; take 12 different prescription meds; hearing is OK; problems with progressive glasses that she has had for about 1 year; in the past 6 months have not fallen, but has fallen multiple times and hit her head, did not lose consciousness; Dizziness Handicap Index- self assessment score of 48/100; ACTIVITY: live with daughter, pt is limited with home tasks due to shoulder pain, chronic pain; indep with self care and mobility; Vestibular testing: - sitting eye tracking: to R/L x10- eyes uncomfortable; up/down- no change - gaze stabilization with head up/down and R/L- no change - Izaiah Mckeon [place] and Horizontal canal testing; no change in dizziness; - supine to sit--increase dizziness Reported Pain Level Pain Score Self Report general pain Additional Pain Score Comments pain range in the past week 8-06/04: neck, shoulders, back, arms, legs; Assessment PT Clinical Summary Karla Campbell has the diagnosis of dizziness, vestibular rehab. With her medical history, she has multiple risk factors for dizziness: multiple falls with hitting her head, cardiac issues, chronic pain of neck, shoulders and back, multiple meds, progressive lens glasses. Dizziness Handicap index score of 48/100. She was not able to report anything that increases her dizziness-- constantly dizzy.
--- NOTE | 2023-06-12 09:08 | PCPTNOTE ---
Pt. arrived 15 minutes late to 30 minute appointment slot due to her transportation being late. She was unable to be seen and appointment was canceled.
--- NOTE | 2023-07-01 09:50 | OPREHPOC ---
Outpatient Therapy Plan of Care This is a Multidisciplinary Plan of Care that may contain components documented by all disciplines (PT, OT, and ST.) PT Problem 1 PT Problem #1 Knowledge Deficit PT Goal 1 Goal 1* indep with HEP Progress Met Comment 07-01-23 progress met goal continue education and HEP PT Problem 2 PT Problem #2 Pain PT Goal 1 Goal 1* pt report pain at worst of 8/10 in neck 2* Dizziness Handicap Index self assessment score of 30/100 Progress Not Met Comment 07-01-23 progress not met continue towards goals PT Problem 3 PT Problem #3 Impaired Flexibility PT Goal 1 Goal increase cervical active ROM, with decreased spasms over neck, causing vestibular s/s: 1* rotation R 50' 2* rotation L 40' 3* side bend R 20' 4* side bend L 20' Progress Not Met Comment 07-01-23 progress goals not met continue towards goals PT Problem 4 PT Problem #4 Impaired Functional Mobil PT Goal 1 Goal improve vestibular s/s to improve mobility: pt report NO dizziness with : 1* supine to sit 2* sit to stand 3* walking 20' with moving head to R/L 2x 4* reading and doing her puzzles 5* further testing of vestibular system as indicated with progression of treatment Progress Not Met Comment 07-01-23 progress goals not met continue towards goals
--- NOTE | 2023-07-01 09:51 | PTOPPROG ---
Assessment and note entered by Nikole Muse, PT Evaluation Information Assessment Status Progress Diagnosis vestibular rehab/dizziness Onset few years ago Subjective Information still have dizziness-dizzy, off balance, when first stand up, have to stay still few seconds, then can walk; have not had any falls; have been doing the neck stretches at home; to see next week when reading and doing puzzles- tends to lose her place on the lines; Dizziness Handicap Index, self assessment 48/100; vitals at rest in sittin/53, HR 94; standing 85/67 Assessment PT Clinical Summary Karla Campbell has received 3 PT sessions and showed up late for one appt-so not able to be treated. Compared to the initial evaluation: pain rating of neck pain is the same; continues to have dizziness with positional changes; use of heat, stim and dry needling decrease her neck pain; continues to have spasms over neck and upper traps She has been educated on safety with mobility and HEP. Cervical ROM and Dizziness Handicap same. With BP check today, it decreased sit to stand position change 114/53 to 85/67, with dizziness in standing--educated pt to continue to monitor her BP at home and hold standing position until dizziness passes. The goals were not achieved. Continue PT treatments. Plan of Care Interventions Electrical Stimulation,Hot Pack/Cold Pack,Manual Therapy,Neuro Re-education,Patient Education,Therapeutic Activities,Therapeutic Exercise,Ultrasound,Other Other Interventions dry needling, taping, IASTM PT Services Indicated Yes Treatment Frequency and 2x/wk for 4 weeks Duration These treatments will address the objective and functional deficits as defined above. The patient will be advanced safely and appropriately in order for the patient to progress towards his/her prior level of function. Additional exercises will be introduced and as well as a comprehensive home exercise program upon discharge, if needed, ?to ensure carryover of functional gains achieved in the clinic. This treatment plan has been reviewed and agreement upon by the patient.
--- NOTE | 2023-07-04 09:10 | PCPTNOTE ---
Pt. canceled 07/04/23 appointment due to transportation.
--- NOTE | 2023-07-11 10:20 | PCPTNOTE ---
Pt. showed up for 07/11/23 35 minutes late due to her transportation. Appointment was rescheduled to next week.
--- NOTE | 2023-07-16 09:32 | PCPTNOTE ---
Patient called & cancelled scheduled appointment this date due to transportation.
--- NOTE | 2023-07-17 10:24 | PCPTNOTE ---
Pt. did not show for appointment on 07/17/23.
--- NOTE | 2023-07-31 09:59 | PTOPDC ---
Assessment and note entered by Nikole Muse, PT Evaluation Information Assessment Status Discharge Diagnosis vestibular rehab/dizziness Onset few years ago Subjective Information feel like things are about the same, still dizzy-- sometimes feels like eyes or ears hurt; blood pressure has been good; with doing her puzzles and reading, some days OK and other days bothers her to do--eyes sore and cannot focus; saw eye in the past year dizzy with sit to stand, getting up out of bed, little bit and then gone, do not stay dizzy; not dizzy with rolling in bed from side/side; saw few weeks ago, gave her new med for over the counter dizziness med--it helps a little, is taking it regularly, every day; fell yesterday, reaching down into cabinet to get something and turned--lost balance; Reported Pain Level Pain Score 7: Self Report Additional Pain Score Comments whole body is always sore; neck pain 5/10 now and at worst in past few days 5/10 Assessment PT Clinical Summary Karla Campbell has received 6 PT sessions from Jun 03 to today. She called/canceled 4 and did not show for 1 appointment. She had issues with transportation to therapy. Compared to the last reevaluation: cervical pain at worst from 8 to 5/10; increase flexibility with cervical rotation to R; rotation to L and side bend R &L are the same; self assessment Dizziness Handicap Index score improved from 48 to 24/100; she reports short duration of dizziness with position change of sit to stand and supine to sit--she has good safety awareness and holds position before moving; also reports eyes hurt/ sore and ears hurt ; she has been educated on HEP and safety. She did have one fall with reaching into cabinet, then standing up and turning. The goals were partially met. Discharge PT services. She is to continue with her HEP and safety. Plan of Care PT Services Indicated No
== END 2023-07-31 10:35 | disposition home or self-care (01) ==
LOC: ANHPT 09:15
PROVIDERS: PCP Family Medicine; Visit Provider Student in an Organized Health Care Education/Training Program
DX: R42 Dizziness and giddiness (principal)
CPT/HCPCS: 97014; 97110; 97140; 97162; 97530; 99199; G0283